=== PATIENT | female | born 1975 | race Caucasian/White ===

== ENCOUNTER 2019-06-08 17:01 | Inpatient (IN) | payer OTHER ==
[~2019-06-08] VITALS: Ht 149.9 cm; Wt 53.5 kg
[~2019-06-08 17:01] MED LIST: IRON236 MG PO; LEVOTHYROXINE25 MCG PO; VITAMIN D400 UNI2 PO
[2019-06-11] MEDS ORDERED: LEVO-T25 MCG PO (09:56)
[2019-06-11] MEDS ORDERED: FUSION PLUS CA1 EACH PO (09:56)
[2019-06-11] MEDS ORDERED: VITAMIN D3125 MC1 (09:57)
[2019-06-14] MEDS ORDERED: INTEGRA F CAPS1 EACH PO (11:19)
[2019-06-14] MEDS ORDERED: OXYC1TAB9 PO (11:19)
[2019-06-14] MEDS ORDERED: INTESTINEX680 M1 PO (11:19)
[2019-06-14] MEDS ORDERED: Neurin-Sl Tablet Sl SL (11:20)
[2019-06-14] MEDS ORDERED: DICLOFENAC SODI75 MG PO (11:20)
[2019-06-14] MEDS ORDERED: Vitamin B-6 PO (11:20)
[2019-06-14] MEDS ORDERED: PANTOPRAZOLE SO40 MG PO (11:20)
== END 2019-06-14 12:16 | disposition home or self-care (01) | DRG 330 ==
LOC: SURH 06-11 06:00 → O/R 06-11 06:00 → SURH 06-11 07:00
PROVIDERS: ADMIT Surgery
PROC: 07TB4ZZ Resection of Mesenteric Lymphatic, Percutaneous Endoscopic Approach (ICD-10-PCS; 2019-06-11)
PROC: 0DJD8ZZ Inspection of Lower Intestinal Tract, Via Natural or Artificial Opening Endoscopic (ICD-10-PCS; 2019-06-11)
PROC: 0DTN4ZZ Resection of Sigmoid Colon, Percutaneous Endoscopic Approach (ICD-10-PCS; principal; 2019-06-11 07:00)
DX: C18.7 Malignant neoplasm of sigmoid colon (principal); D62 Acute posthemorrhagic anemia; R59.0 Localized enlarged lymph nodes